=== PATIENT | male | born 1980 | race Asian ===

== ENCOUNTER 2017-01-31 18:26 | Emergency (ER) | payer BC ==
[~2017-01-31] VITALS: Ht 172.7 cm; Wt 93.0 kg
[2017-01-31 21:06] VITALS: BP 144/96; TEMP 99
== END 2017-01-31 21:06 | disposition home or self-care (01) ==
LOC: ED 18:26
DX: J02.0 Streptococcal pharyngitis (principal)
CPT/HCPCS: 87804; 87880; 99283

== ENCOUNTER 2018-05-18 01:38 | Emergency (ER) | payer BC ==
[~2018-05-18] VITALS: Ht 170.2 cm; Wt 102.1 kg
[2018-05-18 01:48] VITALS: TEMP 98.3
[2018-05-18 02:36] VITALS: BP 145/94
== END 2018-05-18 02:36 | disposition home or self-care (01) ==
LOC: ED 01:38
DX: S00.83XA Contusion of other part of head, initial encounter (principal); S51.812A Laceration without foreign body of left forearm, initial encounter; S41.011A Laceration without foreign body of right shoulder, initial encounter; Y04.8XXA Assault by other bodily force, initial encounter; Y92.098 Other place in other non-institutional residence as the place of occurrence of the external cause
CPT/HCPCS: 99283

== ENCOUNTER 2020-09-25 13:31 | Emergency (ER) | payer BC ==
[~2020-09-25] VITALS: Ht 172.7 cm; Wt 86.2 kg
[2020-09-25 13:35] VITALS: BP 155/96; TEMP 98.9
== END 2020-09-25 14:30 | disposition home or self-care (01) ==
LOC: ED 13:31
DX: M54.12 Radiculopathy, cervical region (principal)
CPT/HCPCS: 99282

== ENCOUNTER 2021-03-11 22:08 | Emergency (ER) | payer BC ==
[~2021-03-11] VITALS: Ht 172.7 cm; Wt 93.0 kg
[2021-03-11 23:06] VITALS: BP 147/92; TEMP 98.4
== END 2021-03-11 23:06 | disposition home or self-care (01) ==
LOC: ED 22:08
DX: K04.7 Periapical abscess without sinus (principal); I10 Essential (primary) hypertension; F17.210 Nicotine dependence, cigarettes, uncomplicated; Z98.890 Other specified postprocedural states
CPT/HCPCS: 99281

== ENCOUNTER 2021-06-29 14:29 | Emergency (ER) | payer BC ==
[~2021-06-29] VITALS: Ht 172.7 cm; Wt 93.0 kg
[2021-06-29 14:30] VITALS: TEMP 98
[2021-06-29 15:05] LABS: PLATELET COUNT 196 K/uL (142-355)
[2021-06-29 15:16] LABS: POTASSIUM 3.6 mmol/L (3.6-5.2); SODIUM 141 mmol/L (136-145)
[2021-06-29 15:21] LABS: PARTIAL THROMBOPLASTIN TIME 24.7 SECONDS (24.5-33.6)
[2021-06-29 17:00] VITALS: BP 150/100
== END 2021-06-29 17:00 | disposition home or self-care (01) ==
LOC: ED 14:29
PROVIDERS: Emergency Medicine
DX: I10 Essential (primary) hypertension (principal); F41.8 Other specified anxiety disorders; R25.3 Fasciculation; F17.210 Nicotine dependence, cigarettes, uncomplicated
CPT/HCPCS: 80053; 80320; 82550; 84484; 85027; 85610; 85730; 93005; 99283

== ENCOUNTER 2021-07-20 09:42 | Emergency (ER) | payer BC ==
[~2021-07-20] VITALS: Ht 172.7 cm; Wt 93.0 kg
[2021-07-20 09:55] VITALS: TEMP 97.9
[2021-07-20 10:21] VITALS: BP 158/98
== END 2021-07-20 10:21 | disposition home or self-care (01) ==
LOC: ED 09:42
DX: S00.06XA Insect bite (nonvenomous) of scalp, initial encounter (principal); W57.XXXA Bitten or stung by nonvenomous insect and other nonvenomous arthropods, initial encounter; Y92.89 Other specified places as the place of occurrence of the external cause
CPT/HCPCS: 99282

== ENCOUNTER 2021-08-12 15:16 | Outpatient (CLI) | payer BC | END 2021-08-12 19:34 | disposition home or self-care (01) | LOC: RAD 15:16 | PROVIDERS: ATTEND Nurse Practitioner Family | DX: M54.2 Cervicalgia (principal); M25.511 Pain in right shoulder; M25.512 Pain in left shoulder ==

== ENCOUNTER 2021-11-27 10:42 | Emergency (ER) | payer BC ==
[~2021-11-27] VITALS: Ht 172.7 cm; Wt 93.0 kg
[2021-11-27 10:50] VITALS: TEMP 98.4
[2021-11-27 11:45] LABS: PLATELET COUNT 140 K/uL (142-355)
[2021-11-27 12:26] LABS: POTASSIUM 3.5 mmol/L (3.6-5.2)
[2021-11-27 12:45] VITALS: BP 129/87
== END 2021-11-27 12:55 | disposition home or self-care (01) ==
LOC: ED 10:42
PROVIDERS: Hospitalist
DX: N13.2 Hydronephrosis with renal and ureteral calculous obstruction (principal)
CPT/HCPCS: 80053; 81000; 83690; 85027; 96360; 96365; 96374; 96375; 99284; J0696; J1170; J1885; J2405

== ENCOUNTER 2022-03-04 15:23 | Outpatient (CLI) | payer BC | END 2022-03-04 22:11 | disposition home or self-care (01) | LOC: RAD 15:23 | PROVIDERS: ATTEND Internal Medicine | DX: I10 Essential (primary) hypertension (principal); N20.0 Calculus of kidney; M54.41 Lumbago with sciatica, right side ==

== ENCOUNTER 2022-03-08 10:21 | Outpatient (CLI) | payer BC | END 2022-03-08 18:57 | disposition home or self-care (01) | LOC: US 10:21 | PROVIDERS: ATTEND Internal Medicine | DX: I10 Essential (primary) hypertension (principal); N20.0 Calculus of kidney ==

== ENCOUNTER 2022-03-11 08:14 | Outpatient (CLI) | payer BC | END 2022-03-11 19:25 | disposition home or self-care (01) | LOC: CT 08:14 | PROVIDERS: ATTEND Internal Medicine | DX: R16.0 Hepatomegaly, not elsewhere classified (principal) | CPT/HCPCS: Q9963 ==

== ENCOUNTER 2022-03-24 15:03 | Outpatient (CLI) | payer BC | END 2022-03-24 19:22 | disposition home or self-care (01) | LOC: MRI 15:03 | PROVIDERS: ATTEND Internal Medicine | DX: R51.9 Headache, unspecified (principal) | CPT/HCPCS: A9576 ==